=== PATIENT | female | born 1945 | race Caucasian/White ===

== ENCOUNTER 2016-12-29 12:09 | Emergency (ER) | payer MEDICARE ==
[2016-12-29] MEDS ORDERED: IOPAMIDOL 300 (61%) 100 ML VIAL IV ONE (12:10)
[2016-12-29] MEDS ORDERED: LACTATED RINGERS 1,000 ML ONE (13:04)
[2016-12-29 13:33] LABS: ABSOLUTE NEUTROPHIL COUNT 3.8 K/mm3 (1.8-7.7); BASO % 0.6 % (0.2-1.0); EOS % 0.6 % (0.9-2.9); HEMATOCRIT 37.1 % (37.0-47.0); HEMOGLOBIN 12.9 gm/l (12.0-16.0); IMM NEUT% 0.4 % (0-1); LYMPH # 0.8 (1.0-4.8); LYMPH % 14.8 % (15-45); MEAN CELL VOLUME 96.4 fl (81.0-99.0); MEAN CORPUSCULAR HEMOGLOBIN 33.5 pg (27.0-31.0); MEAN CORPUSCULAR HGB CONC 34.8 g/dl (33.0-37.0); MEAN PLATELET VOLUME 9.3 fl (7.4-10.4); MONO # 0.5 (0.0-0.8); MONO % 9.1 % (4-12); NEUT % 74.5 % (43-75); PLATELET COUNT 313 K/mm3 (130-400); RED CELL DISTRIBUTION WIDTH 11.6 % (11.5-14.5)
[2016-12-29] MEDS ORDERED: MECLIZINE HCL 25 MG TABLET ONE (13:54)
[2016-12-29 14:09] LABS: ALB/GLOB RATIO 1.3 (>1.0); ALBUMIN 4.2 gm/dL (3.5-5.7); CALCIUM 10.2 mg/dL (8.6-10.3); MAGNESIUM 1.8 mg/dL (1.9-2.7)
--- NOTE | 2016-12-29 15:05 | CT ---
HEAD W/WO CON: 12/29/2016 12:56 PM CLINICAL HISTORY: Vertigo, headache. Patient has history of ovarian cancer. COMPARISON: None. TECHNIQUE: Contiguous axial 5 mm images from skull base to the vertex were obtained without IV contrast. Sagittal and coronal reformations with bone algorithm images were also obtained at this time. Imaging is performed over the same area after the uneventful IV ministration 100 mL of Isovue-300. Sagittal and coronal reformations also tends time. CT DI:: 51.7 DLP: 1774.6 FINDINGS: Infarct: None Extra axial spaces: Normal in size and morphology for the patient's age. Hemorrhage: None. Ventricular system: Enlarged. Basal cisterns: Normal. Cerebral parenchyma: Normal. Midline shift: None. Cerebellum: Enhancing mass is present with surrounding hypodensity in the right cerebellum. The enhancing mass measures approximately 2.8 x 3.1 cm on axial image 6 of the postcontrast series. This causes leftward shift of the fourth ventricle of approximately 7 mm. Surrounding edema is noted throughout the visualized right cerebellum. There are some heterogeneous areas of more cystic type enhancement to this lesion, particularly along the inferior aspect. Downward mass effect is also noted worrisome for partial herniation into the foramen magnum. No other enhancing lesion is present. Brainstem: Normal. OTHER: Calvarium: Normal. Vascular system: Normal. Visualized Paranasal sinuses and Mastoid air cells: Clear. Visualized Orbits and regional soft tissues: Normal. IMPRESSION: Enhancing right cerebellar mass with leftward shift. This likely causes partial obstruction to the CSF flow with subsequent mild hydrocephalus. No other enhancing lesion is present. Given the patient's history of ovarian malignancy, this likely represents metastatic disease to proven otherwise. Findings were called to Dr. Treviño at approximately 1459 hours on 12/29/2016.
[2016-12-29 17:43] LABS: SPECIFIC GRAVITY 1.015 (1.001-1.030); URINE BILIRUBIN NEGATIVE (NEGATIVE); URINE BLOOD TRACE (NEGATIVE); URINE GLUCOSE (UA) NEGATIVE (NEGATIVE); URINE LEUKOCYTE ESTERASE NEGATIVE (NEGATIVE); URINE NITRITE NEGATIVE (NEGATIVE); URINE PROTEIN TRACE (NEGATIVE); URINE UROBILINOGEN NORMAL (0-1 mg/dl)
[2016-12-29 17:46] LABS: URINE APPEARANCE CLEAR; URINE COLOR YELLOW
[2016-12-29 18:01] LABS: URINE RBC 0-2 /hpf; URINE WBC 0-2 /hpf
[2016-12-29 18:02] LABS: URINE BACTERIA 0; URINE EPITHELIAL CELLS 0-2 /hpf
== END 2016-12-29 17:54 | disposition short-term general hospital (02) ==
LOC: ED 12:09
DX: D49.6 Neoplasm of unspecified behavior of brain (principal); G91.9 Hydrocephalus, unspecified
CPT/HCPCS: 85025; 80053; 83735; 81001; 70470; 99284; 96360; 99285; A9270; J7120; Q9967